=== PATIENT | male | born 1965 | race Caucasian/White ===

== ENCOUNTER 2019-10-03 20:04 | Emergency (ER) | payer OTHER ==
[~2019-10-03] VITALS: Ht 177.8 cm; Wt 90.7 kg
[2019-10-03 20:19] VITALS: Ht 177.8 cm; Wt 90.7 kg
[2019-10-03 22:47] VITALS: BP 137/86
== END 2019-10-03 22:47 | disposition home or self-care (01) ==
LOC: ED 20:04
DX: S01.111A Laceration without foreign body of right eyelid and periocular area, initial encounter (principal); S89.91XA Unspecified injury of right lower leg, initial encounter; S49.91XA Unspecified injury of right shoulder and upper arm, initial encounter; Z88.6 Allergy status to analgesic agent; Y04.0XXA Assault by unarmed brawl or fight, initial encounter; Y93.89 Activity, other specified; Y92.89 Other specified places as the place of occurrence of the external cause; Y99.8 Other external cause status
CPT/HCPCS: J2001